=== PATIENT | female | born 1990 | race Two or more races ===

== ENCOUNTER 2019-07-28 03:15 | Inpatient (IN) | payer OTHER ==
[~2019-07-28] VITALS: Ht 167.6 cm; Wt 59.0 kg
[2019-07-28] MEDS ORDERED: HYDROMORPHONE 1 MG/1 ML DISP.SYRIN ONE ×2 (03:36→04:22)
[2019-07-28] MEDS ORDERED: ONDANSETRON HCL/PF 4 MG/2 ML VIAL ONE (03:36)
--- NOTE | 2019-07-28 03:44 | NUR ---
GEETHA C/C ABD PAIN SINCE YESTERDAY, OTC MEDS NO RELIEF, COLECTOMY IN 2016, TO ER BED 3, SEEN BY MD, ORDERS RECEIVED AND CARRIED OUT. LINE STARTED, BLOOD SENT TO LAB.
[2019-07-28 03:46] LABS: APPEARANCE,URINE CLEAR (CLEAR); BILIRUBIN,URINE NEGATIVE (NEGATIVE); BLOOD, URINE NEGATIVE Ery/uL (NEGATIVE); COLOR,URINE YELLOW (YELLOW); KETONES,URINE NEGATIVE (NEGATIVE); LEUKOCYTE ESTERASE ,URINE NEGATIVE (NEGATIVE); NITRITE, URINE NEGATIVE (NEGATIVE); PROTEIN,URINE NEGATIVE (NEGATIVE); UGLUCOSE NEGATIVE (NEGATIVE); UROBILINOGEN,URINE 0.2 EU/dL (0.2)
[2019-07-28 03:56] LABS: BASOPHILS # (AUTO) 0.1 /CMM (0.0-0.2); BASOPHILS % (AUTO) 0.8 % (0.0-2.0); EOSINOPHILS % (AUTO) 0.4 % (0.0-6.0); HEMATOCRIT 30 % (33-45); HEMOGLOBIN 9.5 g/dL (11.5-14.8); LYMPHOCYTES # (AUTO) 0.9 /CMM (0.8-4.8); LYMPHOCYTES % (AUTO) 8.8 % (20.0-44.0); MEAN CORPUSCULAR HGB CONC 31 g/dl (31.0-36.0); MEAN CORPUSCULAR VOLUME 71 fL (82-100); MONOCYTES # (AUTO) 0.4 /CMM (0.1-1.30); MONOCYTES % (AUTO) 3.6 % (2.0-12.0); NEUTROPHILS # (AUTO) 8.8 /CMM (1.8-8.9); NEUTROPHILS % (AUTO) 86.4 % (43.0-81.0); PLATELET COUNT (AUTO) 316 /CMM (150-450); RED BLOOD CELL COUNT(AUTO) 4.25 MIL/uL (4.0-5.2); WHITE BLOOD COUNT (AUTO) 10.2 K/uL (4.3-11.0)
[2019-07-28] MEDS ORDERED: HYDROMORPHONE INJ 2 MG/ML DISP.SYRIN IV ONE ×2 (04:00→04:30)
[2019-07-28] MEDS ORDERED: IV NS 0.9% 1,000 ML BAG IV ONE (04:00)
[2019-07-28] MEDS ORDERED: ONDANSETRON HCL/PF 4 MG/2 ML VIAL IVP ONE (04:00)
--- NOTE | 2019-07-28 04:13 | NUR ---
PT TAKEN TO RADIOLOGY VIA EDDIE
[2019-07-28 04:18] LABS: ALBUMIN 3.9 g/dL (3.4-5.0); BILIRUBIN,DIRECT 0.1 mg/dL (0.0-0.2); BILIRUBIN,TOTAL 0.4 mg/dL (0.2-1.0); CALCIUM, SERUM 9.2 mg/dL (8.5-10.1); CREATININE 0.9 mg/dL (0.6-1.3); POTASSIUM 4.2 mmol/L (3.5-5.1); TOTAL PROTEIN, SERUM 7.2 g/dL (6.4-8.2)
[2019-07-28] MEDS ORDERED: METOCLOPRAMIDE HCL 10 MG/2 ML VIAL ONE ×2 (04:21→05:14)
--- NOTE | 2019-07-28 04:22 | NUR ---
BACK FROM CT
[2019-07-28] MEDS ORDERED: PIPERACILLIN /TAZOBACTAM 3.375 G in IV D5W 50 ML IV ONE (04:30)
[2019-07-28] MEDS ORDERED: METOCLOPRAMIDE HCL 10 MG/2 ML VIAL IV ONE ×2 (04:30→05:30)
[2019-07-28] MEDS ORDERED: SODIUM POLYSTYRENE SULFONATE 15 G/60 ML BOTTLE ONE (05:25)
[2019-07-28] MEDS ORDERED: SODIUM POLYSTYRENE SULFONATE 15 G/60 ML BOTTLE PO ONE (05:30)
--- NOTE | 2019-07-28 06:07 | NUR ---
BED ASSIGNMENT: 312-2
[2019-07-28] MEDS ORDERED: ACETAMINOPHEN 325 MG TABLET PO PRN (06:30)
[2019-07-28] MEDS ORDERED: MAGNESIUM HYDROXIDE 30 ML UDC PO PRN (06:30)
[2019-07-28] MEDS ORDERED: MAG HYDROX/AL HYDROX/SIMETH 30 ML UDC PO PRN (06:30)
[2019-07-28] MEDS ORDERED: Z GUARD REMEDY 2 OZ OINT TP PRN (06:30)
[2019-07-28] MEDS ORDERED: ONDANSETRON HCL/PF 4 MG/2 ML VIAL IVP PRN (06:30)
[2019-07-28] MEDS ORDERED: HYDROCODONE/APAP 5/325MG 1 EACH TABLET PO PRN (06:30)
[2019-07-28] MEDS ORDERED: ZOLPIDEM TARTRATE 5 MG TABLET PO PRN (06:30)
[2019-07-28] MEDS ORDERED: MAGNESIUM CITRATE 296 ML BOTTLE PO ONE (06:30)
--- NOTE | 2019-07-28 06:37 | NUR ---
PT WAS TRANSFERRED TO THE THIRD FLOOR IN STABLE CONDITION.
--- NOTE | 2019-07-28 07:48 | NUR ---
MS VARGAS ADMITTING NOTES PT ADMITTED TO UNIT 0700 VIA GURNEY. A/O X4. ORIENTED TO ROOM AND STAFF. ABLE TO MAKE NEEDS AND CONCERNS KNOWN WITH C/O OF ABDOMINAL PAIN DUE TO CONSTIPATION, MAGNESIUM CITRATE X1 BOTTLE GIVEN ORDERED. ON ROOM AIR, BREATHING EVEN AND UNLABORED. VS TAKEN AND RECORDED. PT WITH ADMITTING DIAGNOSIS OF CONSTIPATION. NOTED WITH IV ACCESS ON RIGHT AC G#20 INTACT, PATENT AND FLUSHES WELL. SAFETY MEASURES INITIATED: BED PLACED IN LOW LOCKED POSITION WITH SR UP X2. CALL LIGHT WITHIN EASY REACH. WILL CONTINUE TO MONITOR PT ACCORDINGLY. Addendum: 07/28/19 at 0902 by BINH ORONA RN CORRECTIONS: PT'S IV ACCESS IS ON LAC G#20, NOT ON RAC
[2019-07-28 08:00] VITALS: BP 127/78
[2019-07-28] MEDS ORDERED: CYCL10TA9 PO (08:54)
[2019-07-28] MEDS ORDERED: MONT10TA22 PO (08:54)
[2019-07-28] MEDS ORDERED: ONDA4TAB11 PO (08:54)
[2019-07-28] MEDS ORDERED: TRAM200T36 PO (08:54)
[2019-07-28] MEDS ORDERED: DOXY100T2 PO (08:54)
[2019-07-28] MEDS ORDERED: TRAM50TA2 PO (08:54)
--- NOTE | 2019-07-28 10:13 | NUR ---
RN NOTES PT C/O OF NAUSEA. PRN ZOFRAN 4MG/2ML ADMINISTERED VIA IVP AT 1009. WILL CONTINUE TO MONITOR AND REASSESS PT.
[2019-07-28] MEDS: IV D5/0.45 NACL 1,000 ML IV SCH ×2 (11:35→21:39)
[2019-07-28] MEDS ORDERED: TRAMADOL HCL 50 MG TABLET PO PRN (12:00)
[2019-07-28] MEDS ORDERED: CYCLOBENZAPRINE 10 MG TABLET PO PRN (12:00)
[2019-07-28] MEDS: LACTULOSE 10 G/15 ML UDC (PYXIS) PO PRN (12:07)
[2019-07-28] MEDS: HYDROMORPHONE 1 MG/1 ML DISP.SYRIN IV PRN ×3 (12:09→21:41)
[2019-07-28] MEDS: ERYTHROMYCIN BASE (250 MG) 250 MG CAPSULE.DR PO SCH ×2 (13:07→21:40)
[2019-07-28 16:00] VITALS: BP 108/72
[2019-07-28] MEDS: ONDANSETRON 4 MG TAB.RAPDIS PO PRN ×2 (16:46→21:43)
--- NOTE | 2019-07-28 16:56 | NUR ---
RN NOTES PT C/O OF UPPER AND LOWER MID ABDOMINAL PAIN WITH SCALE OF 8/10, SAME C/O NAUSEA. PRN DILAUDID 1MG/ML IVP ADMINISTERED AT 1649 AND PRN ZOFRAN 4MG TAB PO GIVEN. WILL CONTINUE TO MONITOR AND REASSESS PT.
--- NOTE | 2019-07-28 18:46 | NUR ---
MS RN CLOSING NOTES: PATIENT IN BED AWAKE AND WATCHING TV AT THIS TIME. FAMILY AT BEDSIDE AT THIS TIME. A/O X4. ABLE TO MAKE NEEDS KNOWN AND AMBULATORY WITH STEADY GAIT. ON ROOM AIR, BREATHING EVEN WITH NO SOB NOTED THROUGHOUT THE DAY. PT HAD LARGE BM X1 THIS SHIFT. IV ACCESS ON LEFT AC #20G INTACT, PATENT, IVF OF D5 1/2 NS @ 125 ML/HR INFUSING WELL, NO S/S OF INFILTRATIONS NOTED. ALL NEEDS AND CARE ATTENDED WELL. SAFETY MEASURES KEPT IN PLACE. BED IN LOWEST LOCKED POSITION WITH SIDE RAILS UP X2. CALL LIGHT WITHIN REACH. WILL ENDORSE TO [employer] NURSE FOR NOEMÍ.
--- NOTE | 2019-07-28 19:40 | NUR ---
RN NOTES: RECEIVED PATIENT IN BED AWAKE AND WATCHING TV AT THIS TIME. FAMILY AT BEDSIDE AT THIS TIME. ALERT ORIENTEDX4. ABLE TO MAKE NEEDS KNOWN AND AMBULATORY WITH STEADY GAIT. ON ROOM AIR, BREATHING EVEN WITH NO SOB NOTED THROUGHOUT THE DAY. WITH PERIPHERAL IV ACCESS ON LEFT AC #20G INTACT, PATENT, IVF OF D5 1/2 NS @ 125 ML/HR INFUSING WELL, NO S/S OF INFILTRATIONS NOTED. SAFETY MEASURES KEPT IN PLACE. BED IN LOWEST LOCKED POSITION WITH SIDE RAILS UP X2. CALL LIGHT WITHIN EASY REACH. WILL CONTINUE TO MONITOR ACCORDINGLY.
[2019-07-28 20:07] VITALS: BP 117/71
[2019-07-28 20:25] VITALS: BP 117/71
[2019-07-28] MEDS: MONTELUKAST SODIUM (10MG) 10 MG TABLET PO SCH (21:40)
[2019-07-28] MEDS: AMITRIPTYLINE HCL 10 MG TABLET PO SCH (21:41)
[2019-07-29] MEDS: ERYTHROMYCIN BASE (250 MG) 250 MG CAPSULE.DR PO SCH ×3 (05:15→21:29)
[2019-07-29] MEDS: IV D5/0.45 NACL 1,000 ML IV SCH ×2 (05:16→14:08)
[2019-07-29 06:22] LABS: BASOPHILS % (AUTO) 0.7 % (0.0-2.0); HEMATOCRIT 28 % (33-45); LYMPHOCYTES # (AUTO) 1.9 /CMM (0.8-4.8); LYMPHOCYTES % (AUTO) 38.1 % (20.0-44.0); MEAN CORPUSCULAR HGB CONC 32 g/dl (31.0-36.0); MEAN CORPUSCULAR VOLUME 71 fL (82-100); MONOCYTES # (AUTO) 0.4 /CMM (0.1-1.30); MONOCYTES % (AUTO) 8.1 % (2.0-12.0); NEUTROPHILS # (AUTO) 2.5 /CMM (1.8-8.9); NEUTROPHILS % (AUTO) 50.1 % (43.0-81.0); PLATELET COUNT (AUTO) 281 /CMM (150-450); RED BLOOD CELL COUNT(AUTO) 3.94 MIL/uL (4.0-5.2)
[2019-07-29 06:34] LABS: CALCIUM, SERUM 8.3 mg/dL (8.5-10.1); CREATININE 0.8 mg/dL (0.6-1.3); MAGNESIUM 1.8 mg/dL (1.8-2.4); PHOSPHORUS 3.7 mg/dL (2.5-4.9); POTASSIUM 3.8 mmol/L (3.5-5.1)
--- NOTE | 2019-07-29 07:28 | NUR ---
RN NOTES: PATIENT IN BED, ABLE TO REST AND SLEPT AT INTERVALS, FAMILY AT BEDSIDE AT THIS TIME. ALERT ORIENTEDX4. ABLE TO MAKE NEEDS KNOWN AND AMBULATORY WITH STEADY GAIT. ON ROOM AIR, BREATHING EVEN WITH NO SOB NOTED THROUGHOUT THE DAY. WITH PERIPHERAL IV ACCESS ON LEFT AC #20G INTACT, PATENT, IVF OF D5 1/2 NS @ 125 ML/HR INFUSING WELL, NO S/S OF INFILTRATIONS NOTED. SAFETY MEASURES KEPT IN PLACE. BED IN LOWEST LOCKED POSITION WITH SIDE RAILS UP X2. CALL LIGHT WITHIN EASY REACH. ENDORSED TO AM NURSE FOR CONTINUITY OF CARE.
--- NOTE | 2019-07-29 07:50 | NUR ---
MS RN OPENING NOTES: PATIENT RECEIVED AWAKE IN BED IN NO ACUTE SIGNS OF DISTRESS. AO X4. ABLE TO MAKE NEEDS KNOWN, ABDOMINAL PAIN TOLERABLE AT THIS TIME. ON ROOM AIR, BREATHING EVEN AND UNLABORED. IV ACCESS ON LEFT AC #20G INTACT AND PATENT, IVF OF D5 1/2 NS @ 125 ML/HR INFUSING WELL, NO S/S OF INFILTRATIONS NOTED. SAFETY MEASURES KEPT IN PLACE. BED IN LOWEST LOCKED POSITION WITH SIDE RAILS UP X2. CALL LIGHT WITHIN EASY REACH. ENDORSED TO AM NURSE FOR CONTINUITY OF CARE.
[2019-07-29 08:00] VITALS: BP 111/58
[2019-07-29] MEDS: ONDANSETRON 4 MG TAB.RAPDIS PO PRN (10:53)
[2019-07-29] MEDS: HYDROMORPHONE 1 MG/1 ML DISP.SYRIN IV PRN ×3 (10:54→20:10)
--- NOTE | 2019-07-29 10:55 | NUR ---
RN NOTES/PAIN MANAGEMENT PT C/O OF UPPER AND LOWER MID ABDOMINAL PAIN WITH SCALE OF 9/10, SAME C/O NAUSEA. PRN DILAUDID 1MG/ML IVP ADMINISTERED AT 1054 AND PRN ZOFRAN 4MG TAB SUBLINGUAL GIVEN. WILL CONTINUE TO MONITOR AND REASSESS PT.
--- NOTE | 2019-07-29 11:09 | NUR ---
RN NOTES PT FOR CT OF ABDOMEN AND PELVIS WITH CONTRAST, ALEC ACOSTA EXPLAINED PROCEDURE AND PT VERBALIZED UNDERSTANDING AND SIGNED CONSENT. PT TRANSPORTED TO RADIOLOGY VIA WHEELCHAIR.
[2019-07-29] MEDS ORDERED: IOHEXOL-300 100 ML VIAL IV ONE (11:12)
[2019-07-29] MEDS ORDERED: IV NS 0.9% 250 ML IV ONE ×2 (11:12→11:13)
[2019-07-29] MEDS ORDERED: CT SWABBABLE VALVE TRANS SET 1 EA INFUS.SET MC ONE (11:12)
[2019-07-29] MEDS ORDERED: DIATR MEGLU/DIATRIZOATE SODIUM 120 ML BOTTLE (GASTROGRAPHIN) ONE (13:00)
--- NOTE | 2019-07-29 13:01 | NUR ---
RN NOTES PT PICKED-UP VIA WHEELCHAIR TO RADIOLOGY FOR SMALL BOWEL THROUGH.
--- NOTE | 2019-07-29 15:47 | NUR ---
RN NOTES PT SEEN BY REGISTERED RESPIRATORY THERAPIST YING HUGGINS WITH ORDER TO OBTAIN CONSENT FOR MANUAL FECAL DISIMPACTION. PROCEDURE EXPLAINED TO PT AND VERBALIZED UNDERSTANDING. CONSENT SIGNED AND FILED IN CHART.
[2019-07-29 16:00] VITALS: BP 106/74
--- NOTE | 2019-07-29 17:05 | NUR ---
RN NOTES MANUAL FECAL DISIMPACTION PERFORMED BY YING. UN-ABLE TO REMOVED LARGE FECAL MATTER. WILL CONTINUE TO MONITOR.
--- NOTE | 2019-07-29 17:56 | NUR ---
RN NOTES FINAL XR FOR THE SMALL BOWEL JUST DONE. WAITING FOR RESULTS.
--- NOTE | 2019-07-29 18:37 | NUR ---
MS RN CLOSING NOTES: PATIENT AWAKE IN BED IN NO ACUTE SIGNS OF DISTRESS. PATIENT FAMILY IS IN THE ROOM VISITING. PATIENT A/O X4. ABLE TO MAKE NEEDS KNOWN. ON ROOM AIR, BREATHING EVEN AND UNLABORED. AFTER MANUAL DISIMPACTION PATIENT HAD A SMALL BOWEL MOVEMENT THAT CONSISTED OF LIQUID AND SOME HARD STOOL. PATIENT WAS ADVISED TO KEEP WALKING. PATIENT WAS AMBULATING AROUND THE UNIT A FEW TIMES LATER TODAY. PATIENT WAS INSTRUCTED ON FURTHER ACTIONS. MAINTAINED ON NPO EXCEPT MEDS. IV ACCESS ON LEFT AC #20G INTACT AND PATENT, IVF OF D5 1/2 NS @ 125 ML/HR INFUSING WELL, NO S/S OF INFILTRATIONS NOTED. SAFETY MEASURES KEPT IN PLACE. BED IN LOWEST LOCKED POSITION WITH SIDE RAILS UP X2. CALL LIGHT WITHIN EASY REACH. WILL ENDORSE TO THE ASSISTANT SUPERINTENDENT NURSE.
--- NOTE | 2019-07-29 19:47 | NUR ---
M/S RN OPENING NOTES PATIENT RECEIVED IN BED A/O x4 WITH FAMILY AT BED SIDE. ABLE TO MAKE NEEDS KNOWN, NO SIGNS OF DISTRESS, NO SOB ON. ON ROOM AIR. PATIENT IS ABLE TO AMBULATE. IV LOCATED ON L AC G#20 PATENT AND INTACT. SAFETY PRECAUTIONS IN PLACE WITH BED IN LOWEST POSITION, BREAKS ON, AND CALL LIGHT WITHIN REACH. WILL CONTINUE TO MONITOR.
[2019-07-29] MEDS: LACTULOSE 10 G/15 ML UDC (PYXIS) PO PRN (19:59)
[2019-07-29] MEDS: METOCLOPRAMIDE HCL 10 MG/2 ML VIAL IV SCH (19:59)
[2019-07-29 20:00] VITALS: BP 108/59
[2019-07-29] MEDS: SORBITOL SOLUTION 30 ML PO SCH (20:07)
[2019-07-29] MEDS: AMITRIPTYLINE HCL 10 MG TABLET PO SCH (21:23)
[2019-07-29] MEDS: MONTELUKAST SODIUM (10MG) 10 MG TABLET PO SCH (21:23)
--- NOTE | 2019-07-29 21:44 | NUR ---
M/S RN NOTES PATIENT HAD BOWEL MOVEMENT. WATERY CONSISTENCY WITH A BROWN/ GREEN COLOR. PATIENT CLAIMED IT WAS MUCH LARGER THAN THE PREVIOUS ONE AND FEELS A LITTLE BETTER AND MORE COMFORTABLE. WILL CONTINUE TO MONITOR.
[2019-07-29] MEDS ORDERED: MINERAL OIL 133 ML (PYXIS) 1 EA ENEMA RC PRN (22:00)
[2019-07-30] MEDS: IV D5/0.45 NACL 1,000 ML IV SCH (00:04)
[2019-07-30] MEDS: METOCLOPRAMIDE HCL 10 MG/2 ML VIAL IV SCH ×2 (00:37→07:52)
[2019-07-30] MEDS: ERYTHROMYCIN BASE (250 MG) 250 MG CAPSULE.DR PO SCH (05:38)
--- NOTE | 2019-07-30 06:54 | NUR ---
M/S RN NOTES PATIENT CURRENTLY RESTING IN BED A/O x4. ABLE TO MAKE NEEDS KNOWN. NO SIGNS ACUTE DISTRESS OR SOB. IV LOCATED ON L AC G20 PATENT AND INTACT. PATIENT IS AMBULATORY. TWO BOWEL MOVEMENTS OCCURRED BOTH WATER BROWN/ GREEN. SAFETY PRECAUTIONS IN PLACE WITH BED IN LOWEST POSITION, LOCKED, AND CALL LIGHT WITHIN REACH. WILL ENDORSE TO ONCOMING SHIFT ABOUT NOEMÍ.
--- NOTE | 2019-07-30 07:10 | NUR ---
MS RN OPENING NOTES RECEIVED PT IN BED, AWAKE. A/O X4. PT TOLERATING RA, WITH NO ACUTE RESPIRATORY DISTRESS NOTED. PT STATED PAIN IN ABD 7-8/10 DURING MORNING ROUNDS. PT WANTED TO GO HOME TODAY. IVF D5 1/2 NS AT 125ML/HR TO LAC G20, INTACT AND FLUID INFUSING WELL. PT KEPT COMFORTABLE. CALL LIGHT KEPT WITHIN REACH. PT'S BED IN LOWEST, LOCKED POSITION WITH SRX3. WILL CONTINUE PLAN OF CARE.
[2019-07-30 07:34] LABS: BASOPHILS % (AUTO) 0.6 % (0.0-2.0); EOSINOPHILS % (AUTO) 2.9 % (0.0-6.0); HEMATOCRIT 29 % (33-45); LYMPHOCYTES # (AUTO) 1.4 /CMM (0.8-4.8); MEAN CORPUSCULAR HGB CONC 31 g/dl (31.0-36.0); MEAN CORPUSCULAR VOLUME 71 fL (82-100); MONOCYTES # (AUTO) 0.5 /CMM (0.1-1.30); MONOCYTES % (AUTO) 8.9 % (2.0-12.0); NEUTROPHILS # (AUTO) 3.1 /CMM (1.8-8.9); NEUTROPHILS % (AUTO) 59.6 % (43.0-81.0); PLATELET COUNT (AUTO) 277 /CMM (150-450); RED BLOOD CELL COUNT(AUTO) 4.05 MIL/uL (4.0-5.2); WHITE BLOOD COUNT (AUTO) 5.2 K/uL (4.3-11.0)
[2019-07-30 07:56] LABS: CALCIUM, SERUM 8.8 mg/dL (8.5-10.1); CREATININE 0.7 mg/dL (0.6-1.3); MAGNESIUM 1.8 mg/dL (1.8-2.4); PHOSPHORUS 4.2 mg/dL (2.5-4.9); POTASSIUM 3.6 mmol/L (3.5-5.1)
[2019-07-30 08:00] VITALS: BP 114/68
[2019-07-30] MEDS: HYDROMORPHONE 1 MG/1 ML DISP.SYRIN IV PRN (08:01)
[2019-07-30] MEDS: SORBITOL SOLUTION 30 ML PO SCH (09:00)
[2019-07-30] MEDS ORDERED: SORB30SO2 PO (09:50)
[2019-07-30] MEDS ORDERED: ERYT250C68 PO (10:04)
[2019-07-30] MEDS ORDERED: LACT10SO58 PO (10:04)
--- NOTE | 2019-07-30 11:50 | NUR ---
MS ENROBING MACHINE OPERATOR NOTES PT AWAKE. A/O X4. PT TOLERATING RA, WITH NO ACUTE RESPIRATORY DISTRESS NOTED. PT DENIES ANY PAIN AT THE MOMENT OF DISCHARGE. PT HAD MAALOX BEFORE LEAVING. CAME TO TEASEL SETTER PT. DISCHARGE INSTRUCTIONS, INVENTORY LIST WERE REVIEWED AND SIGNED BY PT. ALL BELONGINGS WITH THE PT. PT REFUSED FOR CHIN TO BE PHOTO TAKEN, EXPLAINED UNIT PROTOCOL. PT STATED "IT'S OKAY, ITS STILL THE SAME". PRESCRIPTIONS GAVE TO PT. ALL NEEDS AND CARE ATTENDED. LAC G20 PIV, REMOVED AND APPLIED DRY DRESSING. PT LEFT THE UNIT AT 1145, ESCORTED BY CONTRACT CLERK AUTOMOBILE TO THE LOBBY. PT WAS AMBULATORY, ACCOMPANIED BY AND CHILD. HOSPITALIST/REPAIR SERVICER CC AND CN/BALTA AWARE OF PT'S DISCHARGE.
[2019-07-30 16:00] VITALS: BP 105/52
== END 2019-07-30 17:40 | disposition home or self-care (01) | DRG 247 ==
LOC: ER 03:15 → MED 06:08
PROVIDERS: ADMIT Hospitalist; ATTEND Nurse Practitioner Acute Care
DX: K56.41 Fecal impaction (principal); K65.9 Peritonitis, unspecified; K31.84 Gastroparesis; K56.699 Other intestinal obstruction unspecified as to partial versus complete obstruction; E83.51 Hypocalcemia; Z90.49 Acquired absence of other specified parts of digestive tract; D50.9 Iron deficiency anemia, unspecified
CPT/HCPCS: 36415; 71045-TC; 74018; 74250-TC; 80048-TC; 80061-TC; 80076-TC; 81000-TC; 83690-TC; 83735-TC; 84100-TC; 84443-TC; 84703-TC; 85025-TC; 87081-TC; G0378; J1170; J2405; J2543; J2765; J3490; J7030; J7050; J7060; Q0162; Q9963; Q9967